=== PATIENT | female | born 1980 | race Two or more races ===

== ENCOUNTER 2021-01-06 07:12 | Day surgery (SDC) | payer MEDICAID ==
[~2021-01-06] VITALS: Ht 170.2 cm; Wt 95.3 kg
[~2021-01-06 07:12] MED LIST: MEDR5TAB28 PO; PROG1CAP2 PO; Pantoprazole Sodium PO; SERT100T PO; THYR60TA PO; TRAZ100T3 PO
[2021-01-06] MEDS ORDERED: ONDANSETRON HCL 4 MG/2 ML VIAL IV PRN ×2 (07:45→09:30)
[2021-01-06] MEDS ORDERED: LIDOCAINE W/ EPINEPHRINE 1% 20ML VIAL ONE (07:54)
[2021-01-06] MEDS ORDERED: BUPIVACAINE 0.25% INJ 50ML VIAL ONE (07:55)
[2021-01-06] MEDS ORDERED: METHYLENE BLUE 0.5% 5MG/ML 10ml AMP IV ONE (07:55)
[2021-01-06] MEDS ORDERED: PHENYLEPHRINE HCL 10 MG/ML VL IV ONE (08:21)
[2021-01-06] MEDS ORDERED: ceFAZolin 1GM/50ML 100 ML IV ONE (08:32)
[2021-01-06] MEDS ORDERED: MEPERIDINE HCL (25 MG/ML) 1ML VIAL ONE (08:51)
[2021-01-06] MEDS ORDERED: fentaNYL CITRATE 100 MCG/2 ML VL ONE (08:51)
[2021-01-06] MEDS ORDERED: fentaNYL CITRATE 5 ML ONE (08:51)
[2021-01-06] MEDS ORDERED: MIDAZOLAM HCL 1MG/1ML-2 ML VIAL ONE (08:51)
[2021-01-06] MEDS ORDERED: DexAMETHasone SOD PHOS 10MG/1ML VIAL INJ ONE (09:07)
[2021-01-06] MEDS ORDERED: PROPOFOL 10 MG/ML 20 ML IV ONE (09:07)
[2021-01-06] MEDS ORDERED: hydrALAZINE HCL 20 MG/ML VL IV PRN (09:30)
[2021-01-06] MEDS ORDERED: HYDROmorphone HCL 2 MG/ML VL IV PRN (09:30)
[2021-01-06] MEDS ORDERED: LABETALOL HCL 5 MG/ML 4ML SYRINGE IV PRN (09:30)
[2021-01-06] MEDS ORDERED: METOCLOPRAMIDE HCL 5MG/ml INJ 2ml VIAL IV PRN (09:30)
[2021-01-06] MEDS ORDERED: MIDAZOLAM HCL 1MG/1ML-2 ML VIAL IV PRN (09:30)
[2021-01-06] MEDS ORDERED: ePHEDrine SULFATE 50 MG/ML AMP IV PRN (09:30)
[2021-01-06] MEDS ORDERED: MORPHINE SULFATE 4 MG/ML SYR/VIAL IV PRN (09:30)
[2021-01-06] MEDS ORDERED: GLYCOPYRROLATE 0.2 MG/ML 1ML VIAL ONE (10:13)
[2021-01-06] MEDS ORDERED: NEOSTIGMINE 1 MG/ML INJ (10mg/10ML VIAL) ONE (10:13)
[2021-01-06 12:00] VITALS: BP 118/79
== END 2021-01-06 12:10 | disposition home or self-care (01) ==
LOC: SUR 07:12
PROVIDERS: ATTEND Obstetrics & Gynecology
DX: R10.2 Pelvic and perineal pain (principal); N83.202 Unspecified ovarian cyst, left side; N94.89 Other specified conditions associated with female genital organs and menstrual cycle; F41.9 Anxiety disorder, unspecified; F32.9 Major depressive disorder, single episode, unspecified; F99 Mental disorder, not otherwise specified; E66.01 Morbid (severe) obesity due to excess calories; E07.9 Disorder of thyroid, unspecified; K21.9 Gastro-esophageal reflux disease without esophagitis; Z20.822 Contact with and (suspected) exposure to COVID-19; Z98.890 Other specified postprocedural states; Z68.32 Body mass index [BMI] 32.0-32.9, adult; Z79.899 Other long term (current) drug therapy; Z68.33 Body mass index [BMI] 33.0-33.9, adult; Z90.710 Acquired absence of both cervix and uterus
CPT/HCPCS: 58662; 86850; 86900; 86901; J0690; J1100; J2175; J2250; J2370; J2405; J2704; J2765; J3010; J3490; J7030; S2900; U0003